=== PATIENT | female | born 1945 | race Caucasian/White ===

== ENCOUNTER 2018-12-05 03:55 | Inpatient (IN) | payer MEDICARE, BC ==
[2018-12-05] MEDS ORDERED: DEXTROSE 50% 50 ML SYRINGE IV ×6 (04:30→08:00)
[2018-12-05] MEDS ORDERED: HYDROCODONE/APAP (5/325) TAB GTB (04:30)
[2018-12-05] MEDS ORDERED: GLUCAGON 1 MG INJ IM ×3 (04:30→08:00)
[2018-12-05] MEDS ORDERED: GLUCOSE GEL 15 GRAM TUBE BUCCAL ×2 (05:00→08:00)
[2018-12-05] MEDS ORDERED: GLUCOSE GEL 15 GRAM TUBE PO ×4 (05:00→08:00)
[2018-12-05] MEDS ORDERED: DIGOXIN 500 MCG INJ IV (05:08)
[2018-12-05] MEDS: DIGOXIN 500 MCG INJ IV ×2 (05:15→22:47)
[2018-12-05] MEDS: SOD CHLORIDE 0.9% 1,000 ML IV ×3 (05:21→14:43)
[2018-12-05 05:22] LABS: ADD MAN DIFF? NO
[2018-12-05 05:26] LABS: BASOPHILS % 0.6 % (0.0-2.0); EOSINOPHILS # 0.3 10^3/ul (0.0-0.5); EOSINOPHILS % 4.8 % (0.0-7.0); HEMATOCRIT 31.4 % (37.0-47.0); HEMOGLOBIN 9.5 g/dl (12.0-16.0); LYMPHOCYTES # 1.2 10^3/ul (0.8-2.9); LYMPHOCYTES % 19.1 % (15.0-51.0); MEAN CORPUSCULAR HEMOGLOBIN 25.5 pg (29.0-33.0); MEAN CORPUSCULAR HGB CONC 30.3 g/dl (32.0-37.0); MEAN CORPUSCULAR VOLUME 84.4 fl (82.0-101.0); MEAN PLATELET VOLUME 11.6 fl (7.4-10.4); MONOCYTE # 0.4 10^3/ul (0.3-0.9); MONOCYTES % 6.5 % (0.0-11.0); NEUTROPHIL # 4.3 10^3/ul (1.6-7.5); NEUTROPHILS % 68.7 % (39.0-77.0); PLATELET COUNT 237 10^3/UL (140-415); RED BLOOD COUNT 3.72 10^6/ul (4.20-5.40); RED CELL DISTRIBUTION WIDTH 17.4 % (11.5-14.5)
[2018-12-05 05:26] LABS: WHITE BLOOD COUNT 6.3 10^3/ul (4.8-10.8)
[2018-12-05] MEDS ORDERED: ONDANSETRON 4 MG INJ IV (05:30)
[2018-12-05] MEDS ORDERED: ZOLPIDEM 5 MG TAB PO (05:30)
[2018-12-05] MEDS ORDERED: PENDING SANTYL ORDER FOR WOUND CARE XX (05:30)
[2018-12-05 06:06] LABS: LACTIC ACID 1.2 mmol/L (0.5-2.0)
[2018-12-05 06:21] LABS: ALANINE AMINOTRANSFERASE 9 IU/L (13-69); ALBUMIN 3.2 g/dl (3.3-4.9); ALBUMIN/GLOBULIN RATIO 0.91; ALKALINE PHOSPHATASE 167 IU/L (42-121); ANION GAP 9 (5-13); ASPARTATE AMINO TRANSFERASE 14 IU/L (15-46); BILIRUBIN,INDIRECT 0.2 mg/dl (0-1.1); BILIRUBIN,TOTAL 0.2 mg/dl (0.2-1.3); BLOOD UREA NITROGEN 26 mg/dl (7-20); CALCIUM 9.2 mg/dl (8.4-10.2); CARBON DIOXIDE 28 mmol/L (21-31); CHLORIDE 103 mmol/L (97-110); CREATININE 0.34 mg/dl (0.44-1.00); GLUCOSE 149 mg/dl (70-220); MAGNESIUM 2.1 mg/dl (1.7-2.5); PHOSPHORUS 3.6 mg/dl (2.5-4.9); POTASSIUM 4.6 mmol/L (3.5-5.1); SODIUM 140 mmol/L (135-144); TOTAL PROTEIN 6.7 g/dl (6.1-8.1)
[2018-12-05] MEDS: LANSOPRAZOLE 30 MG CAP GTB ×2 (06:48→17:33)
[2018-12-05] MEDS ORDERED: INSULIN ASPART [NOVOLOG] 3 ML PEN SC (07:35)
[2018-12-05] MEDS: ALBUTEROL 0.083% (NEB) 2.5 MG/3 ML AMP HHN ×3 (08:12→20:40)
[2018-12-05] MEDS: IPRATROPIUM (NEB) 0.5 MG/2.5 ML AMP HHN ×3 (08:12→20:40)
[2018-12-05] MEDS: clonAZEPAM 0.5 MG TAB GTB ×2 (08:21→20:35)
[2018-12-05] MEDS: ASCORBIC ACID 500 MG TAB GTB ×2 (08:22→20:35)
[2018-12-05] MEDS: BACLOFEN 10 MG TAB GTB (08:22)
[2018-12-05] MEDS: SERTRALINE 50 MG TAB GTB (08:22)
[2018-12-05] MEDS: LEVETIRACETAM (100 MG/ML) 5ML CUP GTB ×2 (08:22→20:36)
[2018-12-05] MEDS: ZINC SULFATE 220 MG CAP GTB (08:22)
[2018-12-05] MEDS: MULTIVITAMINS 30 ML CUP GTB (08:22)
[2018-12-05] MEDS: ASPIRIN 81 MG TAB GTB ×2 (08:22→20:35)
[2018-12-05] MEDS: LACTOBACILLUS RHAMNOSUS CAP GTB ×2 (08:22→20:35)
[2018-12-05] MEDS: CYANOCOBALAMIN 500 MCG TAB GTB (08:22)
[2018-12-05] MEDS: DAKINS 0.0125%(1/40) 473 ML SOLUTION TP ×2 (08:23→20:37)
[2018-12-05] MEDS: INSULIN ASPART [NOVOLOG] 3 ML PEN SC ×4 (08:29→20:48)
[2018-12-05] MEDS: POLYETHYLENE GLYCOL 17 GM PACKET GTB ×2 (08:29→20:58)
[2018-12-05] MEDS: LISINOPRIL 5 MG TAB GTB (08:29)
[2018-12-05] MEDS: METOPROLOL 25 MG TAB GTB ×2 (08:30→20:57)
[2018-12-05] MEDS: METOPROLOL 5 MG INJ IV ×4 (08:30→20:58)
[2018-12-05] MEDS: CHOLECALCIFEROL 2,000 UNIT CAP GTB (09:00)
[2018-12-05] MEDS: CEFTAZIDIME 2GM/50 ML (PMX) 50 ML IVPB ×2 (09:45→17:33)
[2018-12-05] MEDS: AMIODARONE 150MG/D5W BOLUS 100 ML IV (13:36)
[2018-12-05] MEDS: AMIODARONE 900 MG in DEXTROSE 5% 482 ML IV (14:43)
[2018-12-05] MEDS: ALBUMIN HUMAN 25% 100 ML IV ×2 (15:19→22:46)
[2018-12-05] MEDS: NORepinephrine 8MG/250 ML (PMX 250 ML IV (15:44)
[2018-12-05 19:08] LABS: LACTIC ACID 0.8 mmol/L (0.5-2.0)
[2018-12-05 19:20] LABS: TROPONIN-I 0.018 ng/ml (0.000-0.120)
[2018-12-05 19:21] LABS: ADD UMIC YES; UR ASCORBIC ACID 40 mg/dL (NEGATIVE); UR BACTERIA FEW /HPF (NONE SEEN); UR BILIRUBIN (Dip) NEGATIVE (NEGATIVE); UR BLOOD (Dip) 1+ mg/dL (NEGATIVE); UR BUDDING YEAST FEW /HPF (NONE SEEN); UR CLARITY SLIGHTLY CLOUDY (CLEAR); UR COLOR YELLOW (YELLOW); UR GLUCOSE (Dip) NEGATIVE (NEGATIVE); UR KETONES (Dip) TRACE mg/dL (NEGATIVE); UR LEUKOCYTE ESTERASE (Dip) 2+ Leu/ul (NEGATIVE); UR MUCUS FEW /HPF (NONE SEEN); UR NITRITE (Dip) NEGATIVE (NEGATIVE); UR RBC 68 /HPF (0-5); UR SPECIFIC GRAVITY (Dip) 1.023 (1.003-1.030); UR TOTAL PROTEIN (Dip) 1+ mg/dl (NEGATIVE); UR UROBILINOGEN (Dip) NEGATIVE (NEGATIVE); UR WBC 27 /HPF (0-5)
[2018-12-05] MEDS ORDERED: ACETAMINOPHEN 650MG/20.3ML CUP GTB (22:00)
[2018-12-06] MEDS: METOPROLOL 5 MG INJ IV ×6 (00:46→21:00)
[2018-12-06] MEDS: INSULIN ASPART [NOVOLOG] 3 ML PEN SC ×6 (00:48→21:00)
[2018-12-06] MEDS: SOD CHLORIDE 0.9% 1,000 ML IV ×3 (01:30→13:00)
[2018-12-06 01:37] LABS: TROPONIN-I 0.026 ng/ml (0.000-0.120)
[2018-12-06] MEDS: ALBUTEROL 0.083% (NEB) 2.5 MG/3 ML AMP HHN ×4 (02:15→19:37)
[2018-12-06 05:41] LABS: ADD MAN DIFF? NO
[2018-12-06 05:47] LABS: BASOPHILS % 0.7 % (0.0-2.0); EOSINOPHILS # 0.2 10^3/ul (0.0-0.5); EOSINOPHILS % 3.1 % (0.0-7.0); HEMATOCRIT 23.8 % (37.0-47.0); HEMOGLOBIN 7.2 g/dl (12.0-16.0); LYMPHOCYTES # 1.3 10^3/ul (0.8-2.9); LYMPHOCYTES % 22.3 % (15.0-51.0); MEAN CORPUSCULAR HEMOGLOBIN 25.6 pg (29.0-33.0); MEAN CORPUSCULAR HGB CONC 30.3 g/dl (32.0-37.0); MEAN CORPUSCULAR VOLUME 84.7 fl (82.0-101.0); MEAN PLATELET VOLUME 11.2 fl (7.4-10.4); MONOCYTE # 0.5 10^3/ul (0.3-0.9); MONOCYTES % 7.7 % (0.0-11.0); NEUTROPHIL # 3.8 10^3/ul (1.6-7.5); NEUTROPHILS % 65.9 % (39.0-77.0); PLATELET COUNT 192 10^3/UL (140-415); RED BLOOD COUNT 2.81 10^6/ul (4.20-5.40); RED CELL DISTRIBUTION WIDTH 17.6 % (11.5-14.5)
[2018-12-06 05:47] LABS: WHITE BLOOD COUNT 5.8 10^3/ul (4.8-10.8)
[2018-12-06] MEDS: LANSOPRAZOLE 30 MG CAP GTB ×2 (05:59→17:44)
[2018-12-06 06:11] LABS: ALANINE AMINOTRANSFERASE 15 IU/L (13-69); ALBUMIN 2.8 g/dl (3.3-4.9); ALBUMIN/GLOBULIN RATIO 1.12; ALKALINE PHOSPHATASE 110 IU/L (42-121); ANION GAP 8 (5-13); ASPARTATE AMINO TRANSFERASE 9 IU/L (15-46); BILIRUBIN,INDIRECT 0.1 mg/dl (0-1.1); BILIRUBIN,TOTAL 0.1 mg/dl (0.2-1.3); BLOOD UREA NITROGEN 18 mg/dl (7-20); CALCIUM 8.7 mg/dl (8.4-10.2); CARBON DIOXIDE 26 mmol/L (21-31); CHLORIDE 109 mmol/L (97-110); GLUCOSE 119 mg/dl (70-220); POTASSIUM 4.1 mmol/L (3.5-5.1); SODIUM 143 mmol/L (135-144); TOTAL PROTEIN 5.3 g/dl (6.1-8.1)
[2018-12-06 06:24] LABS: TROPONIN-I 0.029 ng/ml (0.000-0.120)
[2018-12-06] MEDS: ALBUMIN HUMAN 25% 100 ML IV (06:42)
[2018-12-06] MEDS: METOPROLOL 25 MG TAB GTB ×2 (08:36→21:04)
[2018-12-06] MEDS: POLYETHYLENE GLYCOL 17 GM PACKET GTB ×2 (08:36→21:00)
[2018-12-06] MEDS: clonAZEPAM 0.5 MG TAB GTB ×2 (09:00→21:04)
[2018-12-06] MEDS: MULTIVITAMINS 30 ML CUP GTB (09:02)
[2018-12-06] MEDS: LEVETIRACETAM (100 MG/ML) 5ML CUP GTB ×2 (09:02→21:04)
[2018-12-06] MEDS: LACTOBACILLUS RHAMNOSUS CAP GTB ×2 (09:02→21:04)
[2018-12-06] MEDS: ZINC SULFATE 220 MG CAP GTB (09:03)
[2018-12-06] MEDS: BACLOFEN 10 MG TAB GTB (09:03)
[2018-12-06] MEDS: LISINOPRIL 5 MG TAB GTB (09:03)
[2018-12-06] MEDS: ASCORBIC ACID 500 MG TAB GTB ×2 (09:03→21:03)
[2018-12-06] MEDS: SERTRALINE 50 MG TAB GTB (09:03)
[2018-12-06] MEDS: ASPIRIN 81 MG TAB GTB ×2 (09:03→21:03)
[2018-12-06] MEDS: CYANOCOBALAMIN 500 MCG TAB GTB (09:03)
[2018-12-06] MEDS: CHOLECALCIFEROL 2,000 UNIT CAP GTB (09:04)
[2018-12-06] MEDS: DAKINS 0.0125%(1/40) 473 ML SOLUTION TP ×3 (09:05→21:06)
[2018-12-06] MEDS: IPRATROPIUM (NEB) 0.5 MG/2.5 ML AMP HHN ×3 (09:18→19:37)
[2018-12-06] MEDS: AMIODARONE 200 MG TAB PO (21:04)
[2018-12-07] MEDS: METOPROLOL 5 MG INJ IV ×6 (01:00→20:48)
[2018-12-07] MEDS: INSULIN ASPART [NOVOLOG] 3 ML PEN SC ×6 (01:00→20:49)
[2018-12-07] MEDS: ALBUTEROL 0.083% (NEB) 2.5 MG/3 ML AMP HHN ×4 (01:24→19:41)
[2018-12-07 04:58] LABS: AADO2 Arterial 82.6 mmHg (7.0-24.0); Allen Test ACCEPTAB; Arterial Base Excess 1.9 mmol/L (-3.0-3); Arterial Blood Gas Oxygen Sat 93.1 mmHG (95.0-100.0); Arterial COHb 0.3 % (0.0-3.0); Arterial Fraction of Oxyhgb 92.2 % (93.0-99.0); Arterial HCO3 26.5 mmol/L (22.0-26.0); Arterial MetHb 0.7 % (0.0-1.5); Arterial pCO2 41.3 mmhg (35-45); MODE TRACH COLLAR; Site Right Radial
[2018-12-07] MEDS: LANSOPRAZOLE 30 MG CAP GTB ×2 (05:17→17:55)
[2018-12-07 06:24] LABS: ADD MAN DIFF? NO
[2018-12-07 06:41] LABS: BASOPHILS % 0.5 % (0.0-2.0); EOSINOPHILS # 0.3 10^3/ul (0.0-0.5); EOSINOPHILS % 5.1 % (0.0-7.0); HEMATOCRIT 23.5 % (37.0-47.0); HEMOGLOBIN 7.1 g/dl (12.0-16.0); LYMPHOCYTES % 17.2 % (15.0-51.0); MEAN CORPUSCULAR HEMOGLOBIN 25.9 pg (29.0-33.0); MEAN CORPUSCULAR HGB CONC 30.2 g/dl (32.0-37.0); MEAN CORPUSCULAR VOLUME 85.8 fl (82.0-101.0); MEAN PLATELET VOLUME 11.6 fl (7.4-10.4); MONOCYTE # 0.4 10^3/ul (0.3-0.9); MONOCYTES % 7.4 % (0.0-11.0); NEUTROPHIL # 3.9 10^3/ul (1.6-7.5); NEUTROPHILS % 69.4 % (39.0-77.0); PLATELET COUNT 189 10^3/UL (140-415); RED BLOOD COUNT 2.74 10^6/ul (4.20-5.40); RED CELL DISTRIBUTION WIDTH 17.7 % (11.5-14.5)
[2018-12-07 06:41] LABS: WHITE BLOOD COUNT 5.7 10^3/ul (4.8-10.8)
[2018-12-07 06:42] LABS: LACTIC ACID 0.6 mmol/L (0.5-2.0)
[2018-12-07 06:42] LABS: ANION GAP 5 (5-13); BLOOD UREA NITROGEN 13 mg/dl (7-20); CALCIUM 9.1 mg/dl (8.4-10.2); CARBON DIOXIDE 26 mmol/L (21-31); CHLORIDE 111 mmol/L (97-110); CREATININE 0.28 mg/dl (0.44-1.00); GLUCOSE 122 mg/dl (70-220); POTASSIUM 4.4 mmol/L (3.5-5.1); SODIUM 142 mmol/L (135-144)
[2018-12-07] MEDS: IPRATROPIUM (NEB) 0.5 MG/2.5 ML AMP HHN ×3 (09:02→19:41)
[2018-12-07] MEDS: SOD CHLORIDE 0.9% 1,000 ML IV ×2 (09:28→19:39)
[2018-12-07] MEDS: LACTOBACILLUS RHAMNOSUS CAP GTB ×2 (09:29→20:47)
[2018-12-07] MEDS: ZINC SULFATE 220 MG CAP GTB (09:29)
[2018-12-07] MEDS: LEVETIRACETAM (100 MG/ML) 5ML CUP GTB ×2 (09:29→20:48)
[2018-12-07] MEDS: ASCORBIC ACID 500 MG TAB GTB ×2 (09:30→20:47)
[2018-12-07] MEDS: BACLOFEN 10 MG TAB GTB (09:31)
[2018-12-07] MEDS: SERTRALINE 50 MG TAB GTB (09:32)
[2018-12-07] MEDS: LISINOPRIL 5 MG TAB GTB (09:32)
[2018-12-07] MEDS: AMIODARONE 200 MG TAB PO ×2 (09:33→20:47)
[2018-12-07] MEDS: METOPROLOL 25 MG TAB GTB ×2 (09:33→20:48)
[2018-12-07] MEDS: POLYETHYLENE GLYCOL 17 GM PACKET GTB ×2 (09:34→20:48)
[2018-12-07] MEDS: CHOLECALCIFEROL 2,000 UNIT CAP GTB (09:34)
[2018-12-07] MEDS: CYANOCOBALAMIN 500 MCG TAB GTB (09:34)
[2018-12-07] MEDS: MULTIVITAMINS 30 ML CUP GTB (09:34)
[2018-12-07] MEDS: ASPIRIN 81 MG TAB GTB ×2 (09:34→20:47)
[2018-12-07] MEDS: DAKINS 0.0125%(1/40) 473 ML SOLUTION TP ×4 (09:35→20:51)
[2018-12-07] MEDS: clonAZEPAM 0.5 MG TAB GTB ×2 (09:41→20:48)
[2018-12-07] MEDS: CIPROFLOXACIN 400MG/D5W 200 ML IVPB (20:50)
[2018-12-08] MEDS: INSULIN ASPART [NOVOLOG] 3 ML PEN SC ×4 (01:00→17:28)
[2018-12-08] MEDS: METOPROLOL 5 MG INJ IV ×6 (01:00→21:00)
[2018-12-08] MEDS: ALBUTEROL 0.083% (NEB) 2.5 MG/3 ML AMP HHN ×4 (01:54→19:22)
[2018-12-08] MEDS: SOD CHLORIDE 0.9% 1,000 ML IV ×2 (03:30→09:12)
[2018-12-08] MEDS: LANSOPRAZOLE 30 MG CAP GTB ×2 (05:50→17:29)
[2018-12-08] MEDS: IPRATROPIUM (NEB) 0.5 MG/2.5 ML AMP HHN ×3 (08:51→19:22)
[2018-12-08] MEDS: CYANOCOBALAMIN 500 MCG TAB GTB (08:55)
[2018-12-08] MEDS: LEVETIRACETAM (100 MG/ML) 5ML CUP GTB ×2 (08:55→21:20)
[2018-12-08] MEDS: MULTIVITAMINS 30 ML CUP GTB (08:55)
[2018-12-08] MEDS: ASCORBIC ACID 500 MG TAB GTB ×2 (08:55→21:16)
[2018-12-08] MEDS: ZINC SULFATE 220 MG CAP GTB (08:55)
[2018-12-08] MEDS: LACTOBACILLUS RHAMNOSUS CAP GTB ×2 (08:55→21:16)
[2018-12-08] MEDS: CHOLECALCIFEROL 2,000 UNIT CAP GTB (08:55)
[2018-12-08] MEDS: clonAZEPAM 0.5 MG TAB GTB ×2 (08:55→21:32)
[2018-12-08] MEDS: POLYETHYLENE GLYCOL 17 GM PACKET GTB ×2 (08:56→21:17)
[2018-12-08] MEDS: SERTRALINE 50 MG TAB GTB (08:56)
[2018-12-08] MEDS: ASPIRIN 81 MG TAB GTB ×2 (08:56→21:16)
[2018-12-08] MEDS: CIPROFLOXACIN 400MG/D5W 200 ML IVPB ×2 (08:56→21:17)
[2018-12-08] MEDS: BACLOFEN 10 MG TAB GTB (08:56)
[2018-12-08] MEDS: METOPROLOL 25 MG TAB GTB ×2 (08:57→21:16)
[2018-12-08] MEDS: LISINOPRIL 5 MG TAB GTB (08:58)
[2018-12-08] MEDS: AMIODARONE 200 MG TAB PO ×2 (08:58→21:15)
[2018-12-08] MEDS: DAKINS 0.0125%(1/40) 473 ML SOLUTION TP ×4 (08:59→21:19)
[2018-12-09] MEDS: METOPROLOL 5 MG INJ IV ×6 (01:00→20:57)
[2018-12-09] MEDS: ALBUTEROL 0.083% (NEB) 2.5 MG/3 ML AMP HHN ×4 (02:03→19:36)
[2018-12-09] MEDS: LANSOPRAZOLE 30 MG CAP GTB ×2 (05:50→17:51)
[2018-12-09] MEDS: INSULIN ASPART [NOVOLOG] 3 ML PEN SC ×4 (06:00→17:51)
[2018-12-09] MEDS: SOD CHLORIDE 0.9% 1,000 ML IV (07:30)
[2018-12-09] MEDS: IPRATROPIUM (NEB) 0.5 MG/2.5 ML AMP HHN ×3 (08:14→19:36)
[2018-12-09] MEDS: METOPROLOL 25 MG TAB GTB ×2 (09:00→20:56)
[2018-12-09] MEDS: ASPIRIN 81 MG TAB GTB ×2 (10:20→20:45)
[2018-12-09] MEDS: ZINC SULFATE 220 MG CAP GTB (10:20)
[2018-12-09] MEDS: LISINOPRIL 5 MG TAB GTB (10:20)
[2018-12-09] MEDS: ASCORBIC ACID 500 MG TAB GTB ×2 (10:20→20:45)
[2018-12-09] MEDS: SERTRALINE 50 MG TAB GTB (10:20)
[2018-12-09] MEDS: clonAZEPAM 0.5 MG TAB GTB ×2 (10:21→20:45)
[2018-12-09] MEDS: CHOLECALCIFEROL 2,000 UNIT CAP GTB (10:21)
[2018-12-09] MEDS: LACTOBACILLUS RHAMNOSUS CAP GTB ×2 (10:21→20:46)
[2018-12-09] MEDS: BACLOFEN 10 MG TAB GTB (10:21)
[2018-12-09] MEDS: AMIODARONE 200 MG TAB PO ×2 (10:22→20:56)
[2018-12-09] MEDS: LEVETIRACETAM (100 MG/ML) 5ML CUP GTB ×2 (10:22→20:45)
[2018-12-09] MEDS: MULTIVITAMINS 30 ML CUP GTB (10:22)
[2018-12-09] MEDS: CYANOCOBALAMIN 500 MCG TAB GTB (10:22)
[2018-12-09] MEDS: POLYETHYLENE GLYCOL 17 GM PACKET GTB ×2 (10:22→20:45)
[2018-12-09] MEDS: CIPROFLOXACIN 400MG/D5W 200 ML IVPB ×2 (10:22→20:45)
[2018-12-09] MEDS: DAKINS 0.0125%(1/40) 473 ML SOLUTION TP ×4 (11:00→20:57)
[2018-12-10] MEDS: INSULIN ASPART [NOVOLOG] 3 ML PEN SC ×5 (00:15→23:51)
[2018-12-10] MEDS: METOPROLOL 5 MG INJ IV ×6 (01:00→22:06)
[2018-12-10] MEDS: SOD CHLORIDE 0.9% 1,000 ML IV ×2 (01:17→23:43)
[2018-12-10] MEDS: ALBUTEROL 0.083% (NEB) 2.5 MG/3 ML AMP HHN ×4 (01:22→20:08)
[2018-12-10] MEDS: LANSOPRAZOLE 30 MG CAP GTB ×2 (05:30→17:35)
[2018-12-10] MEDS: IPRATROPIUM (NEB) 0.5 MG/2.5 ML AMP HHN ×3 (08:08→20:08)
[2018-12-10] MEDS: DAKINS 0.0125%(1/40) 473 ML SOLUTION TP ×2 (09:00→22:07)
[2018-12-10] MEDS: LEVETIRACETAM (100 MG/ML) 5ML CUP GTB ×2 (09:34→21:54)
[2018-12-10] MEDS: CHOLECALCIFEROL 2,000 UNIT CAP GTB (09:34)
[2018-12-10] MEDS: MULTIVITAMINS 30 ML CUP GTB (09:34)
[2018-12-10] MEDS: POLYETHYLENE GLYCOL 17 GM PACKET GTB ×2 (09:34→21:58)
[2018-12-10] MEDS: CIPROFLOXACIN 400MG/D5W 200 ML IVPB ×2 (09:34→21:53)
[2018-12-10] MEDS: LACTOBACILLUS RHAMNOSUS CAP GTB ×2 (09:35→21:57)
[2018-12-10] MEDS: SERTRALINE 50 MG TAB GTB (09:36)
[2018-12-10] MEDS: METOPROLOL 25 MG TAB GTB ×2 (09:36→22:06)
[2018-12-10] MEDS: CYANOCOBALAMIN 500 MCG TAB GTB (09:36)
[2018-12-10] MEDS: ASPIRIN 81 MG TAB GTB ×2 (09:36→21:57)
[2018-12-10] MEDS: AMIODARONE 200 MG TAB PO ×2 (09:37→22:07)
[2018-12-10] MEDS: LISINOPRIL 5 MG TAB GTB (09:37)
[2018-12-10] MEDS: ASCORBIC ACID 500 MG TAB GTB ×2 (09:38→21:57)
[2018-12-10] MEDS: BACLOFEN 10 MG TAB GTB (09:38)
[2018-12-10] MEDS: clonAZEPAM 0.5 MG TAB GTB ×2 (09:43→22:05)
[2018-12-10] MEDS: ZINC SULFATE 220 MG CAP GTB (09:43)
[2018-12-10] MEDS: SODIUM HYPOCHLORITE (1/40) 1 LITER BTL TOP (21:56)
[2018-12-11] MEDS: METOPROLOL 5 MG INJ IV ×3 (01:00→09:00)
[2018-12-11] MEDS: ALBUTEROL 0.083% (NEB) 2.5 MG/3 ML AMP HHN ×4 (02:15→20:12)
[2018-12-11] MEDS: LANSOPRAZOLE 30 MG CAP GTB ×2 (05:30→17:04)
[2018-12-11] MEDS: INSULIN ASPART [NOVOLOG] 3 ML PEN SC ×3 (05:33→18:00)
[2018-12-11] MEDS: IPRATROPIUM (NEB) 0.5 MG/2.5 ML AMP HHN ×3 (08:31→20:12)
[2018-12-11] MEDS: ASCORBIC ACID 500 MG TAB GTB ×2 (09:00→23:00)
[2018-12-11] MEDS: DAKINS 0.0125%(1/40) 473 ML SOLUTION TP ×2 (09:00→23:01)
[2018-12-11] MEDS: SODIUM HYPOCHLORITE (1/40) 1 LITER BTL TOP ×2 (09:00→23:01)
[2018-12-11] MEDS: CIPROFLOXACIN 400MG/D5W 200 ML IVPB ×2 (09:19→22:58)
[2018-12-11] MEDS: BACLOFEN 10 MG TAB GTB (09:20)
[2018-12-11] MEDS: LACTOBACILLUS RHAMNOSUS CAP GTB ×2 (09:20→22:59)
[2018-12-11] MEDS: ZINC SULFATE 220 MG CAP GTB (09:20)
[2018-12-11] MEDS: MULTIVITAMINS 30 ML CUP GTB (09:20)
[2018-12-11] MEDS: LEVETIRACETAM (100 MG/ML) 5ML CUP GTB ×2 (09:20→22:58)
[2018-12-11] MEDS: SERTRALINE 50 MG TAB GTB (09:21)
[2018-12-11] MEDS: POLYETHYLENE GLYCOL 17 GM PACKET GTB ×2 (09:21→22:59)
[2018-12-11] MEDS: CYANOCOBALAMIN 500 MCG TAB GTB (09:21)
[2018-12-11] MEDS: CHOLECALCIFEROL 2,000 UNIT CAP GTB (09:21)
[2018-12-11] MEDS: ASPIRIN 81 MG TAB GTB ×2 (09:21→23:00)
[2018-12-11] MEDS: LISINOPRIL 5 MG TAB GTB (09:22)
[2018-12-11] MEDS: AMIODARONE 200 MG TAB PO ×2 (09:22→22:59)
[2018-12-11] MEDS: METOPROLOL 25 MG TAB GTB ×2 (09:23→21:00)
[2018-12-11] MEDS: clonAZEPAM 0.5 MG TAB GTB ×2 (09:30→22:59)
[2018-12-11] MEDS ORDERED: METOPROLOL 5 MG INJ IV (13:00)
[2018-12-11 14:51] LABS: ADD MAN DIFF? NO
[2018-12-11 14:53] LABS: BASOPHILS % 0.6 % (0.0-2.0); EOSINOPHILS # 0.6 10^3/ul (0.0-0.5); EOSINOPHILS % 7.9 % (0.0-7.0); HEMATOCRIT 27.9 % (37.0-47.0); HEMOGLOBIN 8.4 g/dl (12.0-16.0); LYMPHOCYTES # 1.3 10^3/ul (0.8-2.9); LYMPHOCYTES % 18.8 % (15.0-51.0); MEAN CORPUSCULAR HEMOGLOBIN 25.5 pg (29.0-33.0); MEAN CORPUSCULAR HGB CONC 30.1 g/dl (32.0-37.0); MEAN CORPUSCULAR VOLUME 84.8 fl (82.0-101.0); MEAN PLATELET VOLUME 10.2 fl (7.4-10.4); MONOCYTE # 0.5 10^3/ul (0.3-0.9); MONOCYTES % 6.9 % (0.0-11.0); NEUTROPHIL # 4.5 10^3/ul (1.6-7.5); NEUTROPHILS % 65.4 % (39.0-77.0); PLATELET COUNT 243 10^3/UL (140-415); RED BLOOD COUNT 3.29 10^6/ul (4.20-5.40); RED CELL DISTRIBUTION WIDTH 18.1 % (11.5-14.5)
[2018-12-11 15:16] LABS: ANION GAP 6 (5-13); BLOOD UREA NITROGEN 14 mg/dl (7-20); CALCIUM 8.9 mg/dl (8.4-10.2); CARBON DIOXIDE 25 mmol/L (21-31); CHLORIDE 107 mmol/L (97-110); CREATININE 0.34 mg/dl (0.44-1.00); GLUCOSE 105 mg/dl (70-220); POTASSIUM 4.3 mmol/L (3.5-5.1); SODIUM 138 mmol/L (135-144)
[2018-12-11] MEDS: SOD CHLORIDE 0.9% 1,000 ML IV (21:50)
[2018-12-12] MEDS: INSULIN ASPART [NOVOLOG] 3 ML PEN SC ×4 (00:04→18:00)
[2018-12-12] MEDS: ALBUTEROL 0.083% (NEB) 2.5 MG/3 ML AMP HHN ×3 (01:15→14:24)
[2018-12-12] MEDS: LANSOPRAZOLE 30 MG CAP GTB ×2 (06:11→18:17)
[2018-12-12] MEDS: IPRATROPIUM (NEB) 0.5 MG/2.5 ML AMP HHN ×2 (08:11→14:23)
[2018-12-12] MEDS: METOPROLOL 25 MG TAB GTB (09:00)
[2018-12-12] MEDS: LISINOPRIL 5 MG TAB GTB (09:00)
[2018-12-12] MEDS: CIPROFLOXACIN 400MG/D5W 200 ML IVPB (09:35)
[2018-12-12] MEDS: POLYETHYLENE GLYCOL 17 GM PACKET GTB (09:36)
[2018-12-12] MEDS: ZINC SULFATE 220 MG CAP GTB (09:36)
[2018-12-12] MEDS: LEVETIRACETAM (100 MG/ML) 5ML CUP GTB (09:36)
[2018-12-12] MEDS: MULTIVITAMINS 30 ML CUP GTB (09:36)
[2018-12-12] MEDS: ASCORBIC ACID 500 MG TAB GTB (09:37)
[2018-12-12] MEDS: ASPIRIN 81 MG TAB GTB (09:37)
[2018-12-12] MEDS: BACLOFEN 10 MG TAB GTB (09:37)
[2018-12-12] MEDS: SERTRALINE 50 MG TAB GTB (09:37)
[2018-12-12] MEDS: CYANOCOBALAMIN 500 MCG TAB GTB (09:37)
[2018-12-12] MEDS: LACTOBACILLUS RHAMNOSUS CAP GTB (09:37)
[2018-12-12] MEDS: CHOLECALCIFEROL 2,000 UNIT CAP GTB (09:37)
[2018-12-12] MEDS: DAKINS 0.0125%(1/40) 473 ML SOLUTION TP (09:38)
[2018-12-12] MEDS: SODIUM HYPOCHLORITE (1/40) 1 LITER BTL TOP (09:38)
[2018-12-12] MEDS: AMIODARONE 200 MG TAB PO (09:39)
[2018-12-12] MEDS: clonAZEPAM 0.5 MG TAB GTB (09:53)
[2018-12-12] MEDS: SOD CHLORIDE 0.9% 1,000 ML IV (16:50)
[2018-12-12] MEDS: LIDOCAINE 1% (MPF) 5 ML VIAL SC (16:51)
== END 2018-12-12 20:40 | disposition short-term general hospital (02) | DRG 871 ==
LOC: ICU 03:55 → 6WM 12-06 21:30
PROC: 02HV33Z Insertion of Infusion Device into Superior Vena Cava, Percutaneous Approach (ICD-10-PCS; principal; 2018-12-05)
DX: A41.9 Sepsis, unspecified organism (principal); L89.154 Pressure ulcer of sacral region, stage 4; L89.314 Pressure ulcer of right buttock, stage 4; I50.23 Acute on chronic systolic (congestive) heart failure; G93.41 Metabolic encephalopathy; J96.10 Chronic respiratory failure, unspecified whether with hypoxia or hypercapnia; I48.92 Unspecified atrial flutter; G23.1 Progressive supranuclear ophthalmoplegia [Steele-Richardson-Olszewski]; I42.9 Cardiomyopathy, unspecified; M86.9 Osteomyelitis, unspecified; R65.20 Severe sepsis without septic shock; I11.0 Hypertensive heart disease with heart failure; R79.89 Other specified abnormal findings of blood chemistry; Z86.73 Personal history of transient ischemic attack (TIA), and cerebral infarction without residual deficits; E11.9 Type 2 diabetes mellitus without complications; R13.10 Dysphagia, unspecified; D63.8 Anemia in other chronic diseases classified elsewhere; G40.909 Epilepsy, unspecified, not intractable, without status epilepticus; F03.90 Unspecified dementia, unspecified severity, without behavioral disturbance, psychotic disturbance, mood disturbance, and anxiety; I48.0 Paroxysmal atrial fibrillation; Z93.1 Gastrostomy status; Z93.0 Tracheostomy status; Z88.0 Allergy status to penicillin; D50.9 Iron deficiency anemia, unspecified
CPT/HCPCS: 36569; 36600; 71045; 72192; 73510; 76937; 80048; 80053; 81001; 82803; 82962; 83605; 83735; 84100; 84484; 85025; 87040-91; 87070; 87081; 87086; 93005; 94640; 94664